=== PATIENT | female | born 1975 | race Two or more races ===

== ENCOUNTER 2025-03-18 09:05 | Day surgery (SDC) | payer MEDICAID, SELFPAY ==
[2025-03-17 07:24] VITALS: BMI 27.4
--- NOTE | 2025-03-17 07:35 | EKG_ITS ---
[facility] Test Date: 2025-03-17 Pat Name: ORLANDO ENGLE Department: Room: - Gender: Female Battery Filler: JHONNY : 1975 Requested By: Dewey Greenberg Order Number: [id number] Reading MD: Dewey Greenberg Measurements Intervals [place] Rate: 69 P: 26 SC: 155 QRS: 72 QRSD: 88 T: 55 QT: 391 QTc: 420 Interpretive Statements SINUS RHYTHM WITH SINUS ARRHYTHMIA No previous ECG available for comparison /store/[email or web address]/[id number]
[2025-03-17 08:44] LABS: Basophils # (Auto) 0.1 Thou/mm3 (0.0-0.2); Basophils % (Auto) 1 % (0-2.5); Eosinophils # (Auto) 0.2 Thou/mm3 (0.0-0.5); Eosinophils % (Auto) 3 % (0-10); Hematocrit 35.2 % (36.0-46.0); Hemoglobin 11.5 g/dL (12.0-16.0); Immature Granulocytes % (Auto) 0 % (0-0); Immature Granulocytes Auto 0.02 Thou/mm3 (0.00-0.00); Lymphocytes # (Auto) 1.9 Thou/mm3 (1.0-4.8); Lymphocytes % (Auto) 27 % (10-50); Mean Corpuscular HGB Conc 32.7 g/dl (31.0-37.0); Mean Corpuscular Hemoglobin 26.3 pg (25.0-35.0); Mean Corpuscular Volume 81 fL (80-100); Monocytes # (Auto) 0.7 Thou/mm3 (0.0-0.8); Monocytes % (Auto) 9 % (0-12); Neutrophils # (Auto) 4.3 Thou/mm3 (1.8-7.7); Neutrophils % (Auto) 60 % (37-80); Nucleated Red Blood Cell % 0 /100 WBC (0); Platelet Count 324 Thou/mm3 (140-440); RDW Standard Deviation 52.6 fL (36.4-46.3); Red Blood Count 4.37 Miln/mm3 (4.00-5.20); White Blood Count 7.2 Thou/mm3 (3.6-11.0)
[2025-03-17 08:54] LABS: HCG,Qualitative Serum Negative
[2025-03-17 09:28] LABS: Alanine Aminotransferase 8 U/L (10-49); Albumin, Serum 4.2 gm/dL (3.5-5.0); Albumin/Globulin Ratio 1.4 (1.2-2.2); Alkaline Phosphatase 76 U/L (46-116); Anion Gap 4 (7-16); Aspartate Amino Transferase 14 U/L (0-34); BUN/Creatinine Ratio 16 Ratio (12-20); Bilirubin,Total 0.5 mg/dL (0.3-1.2); Blood Urea Nitrogen 11 mg/dL (9-23); Calcium 8.5 mg/dL (8.3-10.6); Calcium (Corrected) 8.5 mg/dL (8.5-10.1); Carbon Dioxide 27.8 mMol/L (20.0-31.0); Chloride 106 mMol/L (98-107); Creatinine (Component) 0.7 mg/dL (0.6-1.3); Estimated Creatinine Clearance 100.6 mL/min (>60); Globulin 2.9 gm/dL (2.3-3.5); Glucose 93 mg/dL (74-106); Osmolality,Calculated 275 (275-295); Potassium 4.2 mMol/L (3.4-5.1); Sodium 138 mMol/L (136-145); Total Protein 7.1 gm/dL (5.7-8.2); eGFR > 60 See Note
[2025-03-17 09:39] LABS: HIV (1&2) Antibody Rapid Non-Reactive
[2025-03-17 09:43] LABS: Hepatitis A Antibody IgM Non Reactive (Non React); Hepatitis B Core Antibody IgM Non Reactive (Non React); Hepatitis B Surface Antigen Non Reactive (Non React); Hepatitis C Antibody Non Reactive (Non React)
--- NOTE | 2025-03-17 15:39 | PD.GYNHP ---
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 YEBOAH is a 49 year old female P3 here for preop visit?patient is scheduled for a cold knife conization.?Pt denied any medical or surgical history?Vaginal deliveries. 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 Constitutional Constitutional: no acute distress Routine HEENT Exam Head: Present normocephalic and atraumatic Eye: Present EOMI and PERRL ENT: Present mucous membranes moist Routine Neck Exam Neck: Present supple and trachea midline Routine Respiratory Exam Respiratory: Present chest non-tender, lungs clear, normal breath sounds and no resp distress Routine Cardiovascular Exam Cardiovascular: Present RRR Routine Abdominal Exam Abdominal: Present soft and normoactive bowel sounds Routine Extremities Exam Extremities: Present full ROM Routine Skin Exam Skin: Present intact and dry Routine Neurological Exam Neurological: Present alert, oriented X3 and CN II-XII intact Routine Psychiatric Exam Psychiatric: Present normal affect and normal thought process 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 - Results Labs 03/17/25 08:15 03/17/25 08:15 Labs: Short CBC 03/17/25 Range/Units 08:15 WBC 7.2 (3.6-11.0) Thou/mm3 Hgb 11.5 L (12.0-16.0) g/dL Hct 35.2 L (36.0-46.0) % Plt Count 324 (140-440) Thou/mm3 BMP 03/17/25 08:15 Sodium 138 Potassium 4.2 Chloride 106 Carbon Dioxide 27.8 BUN 11 Creatinine 0.7 Glucose 93 Calcium 8.5 Liver Function 03/17/25 Range/Units 08:15 Total Bilirubin 0.5 (0.3-1.2) mg/dL AST 14 (0-34) U/L ALT 8 L (10-49) U/L Alkaline Phosphatase 76 (46-116) U/L Albumin 4.2 (3.5-5.0) gm/dL Impressions Impression: 49-year-old para 3 admitted for cervical cone biopsy Pap smear lsil no HPV colpo done in [place] resulted in hu 2, done in September 2024 by a different provider Patient lost to follow-up until recently she saw me and was booked for the procedure Understands the risk of margin positivity, bleeding, infection Was given option of hysterectomy as an alternative Risk of increased invasion in case of expectant management was also discussed Assessment and Plan Additional Assessment & Plan Additional Plan: Boarded for cervical cone biopsy Quality Measures Quality Measures VTE prophylaxis
[2025-03-18] VITALS (8 sets, daily range): BP systolic 117–161; BP diastolic 69–89; PULSE 67–112; RESP 16–22; TEMP 36.6–36.7; O2SAT 99–100; BMI 26.7
--- NOTE | 2025-03-18 12:26 | SUR.PHASEI ---
1200: Pt received in [facility] via gurney. Report from Boris HARRY and Susanna RAIN. Pt obtunded. Oral airway in place. Resp even, unlabored. VS stable. No vaginal bleeding. 1205: Oral airway dc'd. Resp even, unlabored. Pt has intermittent mild nonproductive cough. VS stable. No c/o pain. 1229: Pt resting with no complaints voiced. Cough has subsided. Resp even, unlabored. VS stable. Denies pain.
--- NOTE | 2025-03-18 12:37 | SUR.PHASEII ---
1237: Pt resting with no complaints voiced. Resp even, unlabored. Cough has subsided. VS stable. No vaginal bleeding.
--- NOTE | 2025-03-18 13:12 | SUR.PHASEII ---
1245: Pt fully awake, oriented x3. VS stable. Denies pain. Sitting up tolerating po fluids with no difficulty swallowing and no n/v/ 1306: Pt has met discharge criteria. Has dressed and in transport chair. Awaiting transportation.
--- NOTE | 2025-03-18 13:33 | SUR.PHASEII ---
1334: Transportation available. Pt requested daughter interpret for her. Both stated understanding of discharge instructions. Pt also instructed to pickling grader her prescriptions. Pt discharged from [facility] in stable condition.
--- NOTE | 2025-04-01 13:04 | PD.GYNPROC ---
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 General anesthesia was deemed to be adequate. A time-out was performed to confirm correct patient and correct procedure. The patient was then positioned on the operating room in the dorsolithotomy position. A bimanual examination was performed and the uterus was noted to be small, anteverted in size yet mobile. The cervix was visualized with the aid of a Hudson. We performed endocervical currettage. With dejuan salazar. Local anesthesia with dilute Lidocaine with epinephrine was injected circumferentially around the cervix to aid in hemostasis. Utilizing 0 Vicryl we suture ligated the cervix at 3 and 9 o'clock positions to aid in decreased bleeding to ligate the cervical branch of the uterine arteries. Once the cervix was visualized to be pale, with a scalpel were able to circumferentially remove a cone specimen of the cervix, again prior to excising that cone, we placed a Hegar dilator to protect our margins. Once the cone specimen was removed. Minimal amount of bleeding was noted. We controlled that with ball electrocautery and munsol solution. We then deemed the procedure complete. Hemostasis was obtained. We removed the speculum as well as the Hudson. Sponge, lap and instrument counts were correct x2. The patient was transferred to the recovery room in stable condition Estimated blood loss (ml): 10 Surgical staff Operation Date: 03/18/25 11:30 Case Staff FORENSIC PHOTOGRAPHER: Yany Bee Diagnosis Problem List Completed Was Problem List Reviewed/Reconciled?: Yes
== END 2025-03-18 13:34 | disposition home or self-care (01) ==
PROVIDERS: Anesthesiology; PCP Family Medicine; Referring Provider Student in an Organized Health Care Education/Training Program; Visit Provider Student in an Organized Health Care Education/Training Program
PROC: 0UBC7ZZ Excision of Cervix, Via Natural or Artificial Opening (ICD-10-PCS; CPT 57520; principal; 2025-03-18 11:15)
DX: R87.612 Low grade squamous intraepithelial lesion on cytologic smear of cervix (LGSIL) (principal); Z01.810 Encounter for preprocedural cardiovascular examination
CPT/HCPCS: 57520; 36415; 80053; 80074; 84703; 85025; 86703; 86850; 86900; 86901; 93005; A4217; A4649; J0131; J1100; J2250; J2405; J2598; J2704; J2765; J3010; J3490